=== PATIENT | male | born 1935 | race Caucasian/White ===

== ENCOUNTER 2017-05-27 09:48 | Outpatient (CLI) | payer MEDICARE, BC ==
--- NOTE | 2017-05-27 11:42 | RAD ---
THREE VIEWS LUMBAR SPINE INCLUDING FLEXION AND EXTENSION VIEWS: Date: 05-27-17 History: Lumbar radiculopathy, low back pain. No history of injury. Comparison: None available. FINDINGS: Based on lateral imaging there appears to be five non rib bearing lumbar type vertebral bodies. Utili zing this numbering system, there is a mild wedge shaped compression fracture involving the superior endplate of the L2 vertebral body. The chronicity of this compression fracture is uncertain based on this exam. On neutral and flexion imaging, there is slight retrolisthesis of L2 on L3, L3 on L4, and L4 on L5 with question of trace anterolisthesis of L5 on S1. There is no change in alignment of the v ertebral bodies between flexion and extension views. Facet degenerative change is seen in the lower l umbar spine. Multilevel osteophytes are present. Vascular calcifications are seen in the abdominal ao rta and iliac arteries. IMPRESSION: 1. Compression fracture L2 vertebral body of indeterminate age. 2. Retrolisthesis of L2 on L3, L3 on L4, L4 on L5 with suggestion of trace grade I anterolisthesis of L5 on S1. 3. No abnormal translational motion is seen between flexion and extension views of the lumbar spine. POS: [facility]
--- NOTE | 2017-05-27 12:14 | CT ---
CT LUMBAR SPINE WITHOUT CONTRAST: Date: 05/27/17 HISTORY: Lumbar radiculopathy, low back pain. COMPARISON: None. FINDINGS: Aortoiliac contour is nonaneurysmal. Mildly tortuous. Mild paraspinal musculature atrophy bilaterally. There is narrowing of the L4-5 spinous processes with sclerosis and small erosions. Mild degenerative disease of the SI joints. There is an old fracture with a Schmorl's node at L2 with anterior vertebral body height loss, worse on the right, approximately 15%, and on the left, only approximately 5%. Levels are as follows: T12-L1: Moderate to severe facet arthropathy. Circumferential disc bulge. Ligamentum flavum hypertrophy. Spin al canal narrowing to approximately 8.0 mm. L1-2: Circumferential disc bulge and disc osteophyte complex. Severe facet arthrosis. Mild bilateral neural foraminal narrowing. Mild ligamentum flavum hypertrophy. The spinal canal is narrowed to approximate ly 5.0 mm. L2-3: There is retrolisthesis of L2 over L3 due to degenerative disc space height loss, approximately 2.0 m m. No circumferential disc bulge. Moderate facet arthrosis. Moderate bilateral neural foraminal narro wing. The spinal canal is narrowed approximately 7.0 mm. L3-4: There is 2.0 mm retrolisthesis due to degenerative disc space height loss. Moderate facet arthrosis. Circumferential disc bulge and posterior disc osteophyte complex. The spinal canal is narrowed to sal[place] roximately 7.0 mm. Moderate bilateral neural foraminal narrowing. There appears to be some impingemen t upon the exiting bilateral L3 nerve roots. L4-5: Circumferential disc bulge. Moderate facet arthropathy. Moderate to severe left and moderate right-si ded neural foraminal narrowing. Spinal canal measures approximately 8.0 mm. L5-S1: Moderate posterior degenerative disc space height loss. Severe facet arthrosis. Moderate to severe le ft and moderate right-sided neural foraminal narrowing. IMPRESSION: Multilevel moderate to severe spondylosis as described above. POS: [facility]
== END 2017-05-27 09:49 | disposition home or self-care (01) ==
LOC: TBSIIMAG 09:48
PROVIDERS: ATTEND Neurological Surgery
DX: M47.26 Other spondylosis with radiculopathy, lumbar region (principal)
CPT/HCPCS: 72100; 72131